=== PATIENT | female | born 1975 | race Caucasian/White ===

== ENCOUNTER 2018-06-09 19:26 | Emergency (ER) | payer MEDICAID, OTHER ==
[~2018-06-09] VITALS: Ht 162.6 cm; Wt 73.0 kg
[2018-06-10] MEDS ORDERED: METHOCARBAMOL 500MG TABLET PO ONE (03:00)
[2018-06-10] MEDS ORDERED: HYDROCODONE/ACETAMINOPHEN 5/325MG TABLET PO ONE (03:00)
[2018-06-10] MEDS ORDERED: SODIUM CHLORIDE 0.9% 1,000 ML IV ONE (04:26)
[2018-06-10 05:07] LABS: HEMATOCRIT. 25.8 % (36.0-48.0); HEMOGLOBIN. 7.6 g/dL (12.0-16.0); MEAN CORPUSCULAR HEMOGLOBIN 18.1 pg (28.0-32.0); MEAN CORPUSCULAR VOLUME 61.7 fL (81.0-99.0); MEAN PLATELET VOLUME 7.5 fl (7.4-10.4); PLATELET 505 x1000/uL (130-400); RED BLOOD CELL COUNT 4.19 mill/uL (4.2-5.4); RED CELL DISTRIBUTION WIDTH 19.3 % (11.6-14.6)
[2018-06-10 05:15] LABS: CHLORIDE 108 mEq/L (98-107)
[2018-06-10] MEDS ORDERED: IOHEXOL-300 100 ML BOTTLE ONE (06:21)
[2018-06-10 07:09] VITALS: BP 114/78
[2018-06-10 07:27] LABS: PLATELET ESTIMATE INCREASED
== END 2018-06-10 07:09 | disposition home or self-care (01) ==
LOC: ER 19:26
DX: S16.1XXA Strain of muscle, fascia and tendon at neck level, initial encounter (principal); Z90.710 Acquired absence of both cervix and uterus; Z88.6 Allergy status to analgesic agent; V89.2XXA Person injured in unspecified motor-vehicle accident, traffic, initial encounter; Y93.89 Activity, other specified; Y92.89 Other specified places as the place of occurrence of the external cause; Y99.8 Other external cause status
CPT/HCPCS: 36415; 71260; 72125; 74177; 80048; 81025; 85025; 99284; J7030; Q9967

== ENCOUNTER 2018-07-02 15:38 | Emergency (ER) | payer OTHER ==
[~2018-07-02] VITALS: Ht 165.1 cm; Wt 84.0 kg
[2018-07-02 15:52] VITALS: BP 134/74
== END 2018-07-02 19:31 | disposition left against medical advice (07) ==
LOC: ER 15:38
DX: Z53.21 Procedure and treatment not carried out due to patient leaving prior to being seen by health care provider (principal)

== ENCOUNTER 2018-07-02 23:58 | Emergency (ER) | payer OTHER ==
[~2018-07-02] VITALS: Ht 162.6 cm; Wt 75.0 kg
[2018-07-03] MEDS ORDERED: METHYLPREDNISOLONE SOD SUCC 125 MG/2 ML VIAL IV ONE (01:45)
[2018-07-03] MEDS ORDERED: FAMOTIDINE 20MG/2ML VIAL IV ONE (01:45)
[2018-07-03 02:24] VITALS: BP 121/73
[2018-07-04] MEDS ORDERED: FERR-71 PO (10:32)
[2018-07-04] MEDS ORDERED: VIT500TA8 PO (10:32)
== END 2018-07-03 02:26 | disposition home or self-care (01) ==
LOC: ER 23:58
DX: L50.9 Urticaria, unspecified (principal)
CPT/HCPCS: 96374; 96375; 99283; J2930; J3490

== ENCOUNTER 2018-07-03 07:24 | Inpatient (IN) | payer OTHER ==
[~2018-07-03] VITALS: Ht 162.6 cm; Wt 74.8 kg
[2018-07-03] MEDS ORDERED: DEXAMETHASONE 4MG/ML 1ML VIAL IV ONE (08:15)
[2018-07-03] MEDS ORDERED: DIPHENHYDRAMINE 50MG/ML VIAL IV ONE (08:15)
[2018-07-03] MEDS ORDERED: FAMOTIDINE 20MG/2ML VIAL IV ONE (08:15)
[2018-07-03 08:38] LABS: BASOPHILS % 0.4 % (0.0-2.0); EOSINOPHILS % 0.1 % (0.0-5.0); HEMATOCRIT. 36.9 % (36.0-48.0); LYMPHOCYTES % 14.3 % (20.0-50.0); MEAN CORPUSCULAR HEMOGLOBIN 22.1 pg (28.0-32.0); MEAN PLATELET VOLUME 7.4 fl (7.4-10.4); MONOCYTES % 0.7 % (2.0-8.0); NEUTROPHILS % 84.5 % (40.0-76.0); PLATELET 505 x1000/uL (130-400); RED BLOOD CELL COUNT 4.99 mill/uL (4.2-5.4)
[2018-07-03 08:39] LABS: CHLORIDE 108 mEq/L (98-107)
[2018-07-03 09:16] LABS: PARTIAL THROMBOPLASTIN TIME 29.4 sec (23.4-31.0); PROTHROMBIN TIME 10.2 sec (9.1-11.1)
[2018-07-03 09:38] LABS: PLATELET ESTIMATE MARKEDLY INCREASED
[2018-07-03 09:50] LABS: CLARITY URINE TURBID (CLEAR); COLOR URINE YELLOW (YELLOW); KETONES URINE NEGATIVE (NEGATIVE); LEUKOCYTE ESTERASE URINE TRACE (NEGATIVE); NITRITE URINE NEGATIVE (NEGATIVE); OCCULT BLOOD URINE TRACE (NEGATIVE); PROTEIN URINE NEGATIVE (NEGATIVE); SPECIFIC GRAVITY URINE 1.026 (1.005-1.030); UROBILINOGEN URINE 0.2 E.U./dL (0.2-1.0)
[2018-07-03 09:57] LABS: *AMPHETAMINES SCREEN URINE NEGATIVE (NEGATIVE); *BARBITURATES SCREEN URINE NEGATIVE (NEGATIVE)
[2018-07-03 09:58] LABS: *BENZODIAZEPINES SCREEN URINE NEGATIVE (NEGATIVE); *COCAINE SCREEN URINE NEGATIVE (NEGATIVE); METHADONE URINE SCREEN NEGATIVE (NEGATIVE); OPIATES URINE SCREEN NEGATIVE (NEGATIVE); PHENCYCLIDINE URINE SCREEN NEGATIVE (NEGATIVE)
[2018-07-03 09:59] LABS: CANNABINOID URINE SCREEN NEGATIVE (NEGATIVE)
[2018-07-03] MEDS ORDERED: ONDANSETRON HCL 4MG/2ML INJ IV ONE (12:00)
[2018-07-03] MEDS ORDERED: MORPHINE SULFATE 4 MG/ML CPJ (NOT FOR IM USE) IV ONE (12:00)
[2018-07-03] MEDS ORDERED: HYDROCODONE/ACETAMINOPHEN 5/325MG TABLET PO PRN (13:45)
[2018-07-03] MEDS ORDERED: IPRATROPIUM/ALBUTEROL 0.5-3(2.5)MG/3ML NEB INH PRN (13:45)
[2018-07-03] MEDS ORDERED: LORAZEPAM 0.5MG TABLET PO PRN (13:45)
[2018-07-03] MEDS ORDERED: ACETAMINOPHEN 325MG TABLET PO PRN (13:45)
[2018-07-03] MEDS ORDERED: CLONIDINE 0.1MG TABLET PO PRN (13:45)
[2018-07-03] MEDS ORDERED: MAGNESIUM/ALUMINUM HYDROXIDE/SIMETHICONE 30ML UDC PO PRN (13:45)
[2018-07-03] MEDS ORDERED: DOCUSATE SODIUM 100MG CAPSULE PO PRN (13:45)
[2018-07-03] MEDS ORDERED: ONDANSETRON HCL 4MG/2ML INJ IV PRN (13:45)
[2018-07-03 15:55] LABS: CREATINE KINASE 36 IU/L (26-192)
[2018-07-03 15:56] LABS: CREATINE KINASE MB FRACTION < 1.0 ng/mL (0.5-3.6)
[2018-07-03 18:00] VITALS: BP 120/72
[2018-07-03 18:12] VITALS: BP 120/72
[2018-07-03] MEDS ORDERED: INFLUENZA VIRUS VACCINE(AFLURIA) 0.5ML SYR IM ONE (18:45)
[2018-07-03] MEDS: PANTOPRAZOLE SODIUM 40 MG/VIAL IV SCH (18:51)
[2018-07-03] MEDS ORDERED: PNEUMOCOCCAL 23-VAL P-SAC VAC 0.5 ML IM ONE (19:00)
[2018-07-03 20:00] VITALS: BP 121/57
[2018-07-03] MEDS: LORATADINE 10MG TABLET PO SCH (20:10)
[2018-07-03] MEDS: PREDNISONE 20MG TABLET PO SCH (20:10)
[2018-07-03] MEDS: FAMOTIDINE 20MG TABLET PO SCH (20:54)
[2018-07-03 21:06] LABS: CLARITY URINE TURBID (CLEAR); COLOR URINE RED (YELLOW); KETONES URINE TRACE (NEGATIVE); LEUKOCYTE ESTERASE URINE 1+ (NEGATIVE); NITRITE URINE POSITIVE (NEGATIVE); OCCULT BLOOD URINE 2+ (NEGATIVE); PROTEIN URINE NEGATIVE (NEGATIVE); SPECIFIC GRAVITY URINE 1.033 (1.005-1.030)
[2018-07-03 21:23] LABS: UCG SCREEN NEGATIVE
[2018-07-04] VITALS: BP 101/54
[2018-07-04 04:00] VITALS: BP 97/54
[2018-07-04 07:54] LABS: BASOPHILS % 0.3 % (0.0-2.0); HEMATOCRIT. 33.4 % (36.0-48.0); LYMPHOCYTES % 16.8 % (20.0-50.0); MEAN CORPUSCULAR HEMOGLOBIN 22.2 pg (28.0-32.0); MEAN CORPUSCULAR VOLUME 74.1 fL (81.0-99.0); MEAN PLATELET VOLUME 7.7 fl (7.4-10.4); MONOCYTES % 7.6 % (2.0-8.0); NEUTROPHILS % 75.3 % (40.0-76.0); PLATELET 451 x1000/uL (130-400)
[2018-07-04 08:00] VITALS: BP 101/56
[2018-07-04 08:02] LABS: CHLORIDE 106 mEq/L (98-107)
[2018-07-04 08:15] LABS: CREATINE KINASE 29 IU/L (26-192); PHOSPHORUS 4.7 mg/dL (2.5-4.9)
[2018-07-04 08:16] LABS: CREATINE KINASE MB FRACTION < 1.0 ng/mL (0.5-3.6); HDL CHOLESTEROL 52 mg/dL (40-59); LDL CHOLESTEROL 102 mg/dL (5-100)
[2018-07-04] MEDS: PANTOPRAZOLE SODIUM 40 MG/VIAL IV SCH (10:26)
[2018-07-04] MEDS: LORATADINE 10MG TABLET PO SCH (10:27)
[2018-07-04] MEDS ORDERED: FERR-71 PO (10:32)
[2018-07-04] MEDS ORDERED: VIT500TA8 PO (10:32)
[2018-07-04] MEDS ORDERED: DIPHENHYDRAMINE 50MG/ML VIAL IV PRN (11:15)
[2018-07-04] MEDS: PREDNISONE 20MG TABLET PO SCH (11:24)
[2018-07-04] MEDS ORDERED: CEFTRIAXONE 1 G PREMIX 50 ML IV SCH ×2 (11:30→17:00)
[2018-07-04 12:00] VITALS: BP 103/63
[2018-07-04 14:26] LABS: TOTAL IRON BINDING CAPACITY 380 ug/dL (250-450)
[2018-07-04 16:00] VITALS: BP 100/52
[2018-07-04 20:00] VITALS: BP 95/53
[2018-07-04] MEDS: FAMOTIDINE 20MG TABLET PO SCH (20:27)
[2018-07-05] VITALS: BP 93/49
[2018-07-05 04:00] VITALS: BP 96/55
[2018-07-05 07:50] LABS: BASOPHILS % 0.5 % (0.0-2.0); EOSINOPHILS % 1.1 % (0.0-5.0); LYMPHOCYTES % 35.4 % (20.0-50.0); MEAN CORPUSCULAR HEMOGLOBIN 22.2 pg (28.0-32.0); MEAN CORPUSCULAR VOLUME 75.4 fL (81.0-99.0); MEAN PLATELET VOLUME 7.5 fl (7.4-10.4); MONOCYTES % 9.7 % (2.0-8.0); NEUTROPHILS % 53.3 % (40.0-76.0); PLATELET 428 x1000/uL (130-400); RED BLOOD CELL COUNT 4.51 mill/uL (4.2-5.4); RED CELL DISTRIBUTION WIDTH 36.2 % (11.6-14.6)
[2018-07-05 08:00] VITALS: BP 104/56
[2018-07-05] MEDS: PANTOPRAZOLE SODIUM 40 MG/VIAL IV SCH (09:33)
[2018-07-05] MEDS: PREDNISONE 20MG TABLET PO SCH (09:33)
[2018-07-05] MEDS: LORATADINE 10MG TABLET PO SCH (09:33)
[2018-07-05] MEDS ORDERED: CLAR10 PO (10:40)
[2018-07-05] MEDS ORDERED: DIPH25CA83 MT (10:40)
[2018-07-05] MEDS ORDERED: ATOR10TA MT (10:40)
[2018-07-05] MEDS ORDERED: FAMO20TA8 PO (10:40)
[2018-07-05] MEDS ORDERED: PANT40TA4 MT (10:40)
[2018-07-05 12:47] VITALS: BP 106/62
[2018-07-05 13:00] LABS: CHLORIDE 107 mEq/L (98-107)
== END 2018-07-05 13:55 | disposition home or self-care (01) | DRG 243 ==
LOC: ER 08:41 → 8WST 13:17 → EDBEDREQ 13:24 → ENRESERV 16:34
PROVIDERS: ADMIT Internal Medicine; ATTEND Internal Medicine
DX: K21.0 Gastro-esophageal reflux disease with esophagitis (principal); I24.9 Acute ischemic heart disease, unspecified; D64.9 Anemia, unspecified; L50.9 Urticaria, unspecified; N39.0 Urinary tract infection, site not specified; E78.5 Hyperlipidemia, unspecified; R07.89 Other chest pain; R73.9 Hyperglycemia, unspecified; Z87.828 Personal history of other (healed) physical injury and trauma; Z86.19 Personal history of other infectious and parasitic diseases; Z88.8 Allergy status to other drugs, medicaments and biological substances; Z91.018 Allergy to other foods; Z88.6 Allergy status to analgesic agent
CPT/HCPCS: 36415; 71045; 78582; 80048; 80061; 80305; 81025; 82550; 82553; 83036; 83540; 83550; 83735; 83880; 84100; 84484; 85379; 90686; 90732; 93005; 93306; 93970; 96374; 96375; 99285; A9558; C9113; J0696; J1100; J1200; J2270; J2405; J3490; J7050; J7512